=== PATIENT | female | born 1960 | race Caucasian/White ===

== ENCOUNTER 2017-04-04 11:48 | Observation (INO) | payer BC ==
[2017-04-04 11:55] VITALS: BMI 29.5
--- NOTE | 2017-04-04 12:19 | PDOC ---
History of Present Illness - History of Present Illness Initial Comments: 04/04/17 13:59 The patient is a 57 year old female, with a significant past medical history of Lyme disease, who presents to the emergency department from Dr. Ashley office with intermittent left arm pain and numbness that started yesterday with new onset of facial tingling and jaw tightness today. The patient states her left arm tingling and numbness started at her finger and wrist and slowly radiates up her to her shoulder. She reports the tingling and numbness is intermittent and lasts for short periods of time. She states at the onset of her symptoms she called Dr. Monterroso to schedule an appointment for today and could not cook chili her phone in her left hand. She states she was driving [place] the bridge to [place] today when her symptoms returned. She states she pulled off the highway when she developed the new onset of tingling in her tongue and lips, followed by jaw tightness because she was afraid she would pass out. She states she asked the receiving clerk at a gas station to call for an ambulance and drank a bottle of water while she waited. She reports her BP when ems arrived was 150/ 80 and she reports her baseline BP is 110/80. She states she refused to be brought to a hospital via ems and reports driving herself to Dr. Monterroso who, then, referred the patient to [facility]. The patient denies any numbness or tingling at this time. She denies chest pain, shortness of breath, headache and dizziness. She denies fever, chills, nausea, vomit, diarrhea and constipation. She denies dysuria, frequency, urgency and hematuria. Allergies: NKDA Past surgical history: bilateral vascular surgery Social history: denies history of tobacco, alcohol, or illicit drug habits PCP - Dr. Monterroso <Odalys Mariee - Last Filed: 04/04/17 14:22> - General History Source: Patient, Old Records Exam Limitations: No Limitations <Milla Stephens - Last Filed: 04/04/17 15:18> - General Chief Complaint: Weakness Stated Complaint: NUMBNESS TO LT HAND/ MOUTH (PCP SENT) Time Seen by Provider: 04/04/17 12:19 Past History <Odalys Mariee - Last Filed: 04/04/17 14:22> - Past Medical History Other medical history: LYME - Psycho/Social/Smoking Cessation Hx Suicidal Ideation: No Smoking History: Never smoked Information on smoking cessation initiated: No <Milla Stephens - Last Filed: 04/04/17 15:18> - Past Medical History Allergies/Adverse Reactions: Allergies Allergy/AdvReac Type Severity Reaction Status Date / Time No Known Allergies Allergy Verified 04/04/17 11:56 Home Medications: Ambulatory Orders NK [No Known Home Medication] 04/04/17 Review of Systems - Review of Systems Able to Perform ROS?: Yes Comments:: 04/04/17 14:05 GENERAL/CONSTITUTIONAL: No fever or chills. No weakness. HEAD, EYES, EARS, NOSE AND THROAT: (+) tingling to tongue and lips. Jaw tightness. No change in vision. No ear pain or discharge. No sore throat. CARDIOVASCULAR: No chest pain or shortness of breath. RESPIRATORY: No cough, wheezing, or hemoptysis. GASTROINTESTINAL: No nausea, vomiting, diarrhea or constipation. GENITOURINARY: No dysuria, frequency, or change in urination. MUSCULOSKELETAL: (+) Left arm numbness and tingling. No joint or muscle swelling or pain. No neck or back pain. SKIN: No rash NEUROLOGIC: No headache, vertigo, loss of consciousness, or change in strength/ sensation. ENDOCRINE: No increased thirst. No abnormal weight change. HEMATOLOGIC/LYMPHATIC: No anemia, easy bleeding, or history of blood clots. ALLERGIC/IMMUNOLOGIC: No hives or skin allergy. <Odalys Mariee - Last Filed: 04/04/17 14:22> *Physical Exam - Vital Signs Last Vital Signs Temp Pulse Resp BP Pulse Ox 98.1 F 91 H 18 121/91 98 04/04/17 11:51 04/04/17 11:51 04/04/17 11:51 04/04/17 11:51 04/04/17 11:51 - Physical Exam Comments: 04/04/17 14:06 GENERAL: Awake, alert, and fully oriented, in no acute distress HEAD: No signs of trauma EYES: PERRLA, EOMI, sclera anicteric, conjunctiva clear ENT: Auricles normal inspection, hearing grossly normal, nares patent, oropharynx clear without exudates. Moist mucosa NECK: Normal ROM, supple, no lymphadenopathy, JVD, or masses LUNGS: Breath sounds equal, clear to auscultation bilaterally. No wheezes, and no crackles HEART: Regular rate and rhythm, normal S1 and S2, no murmurs, rubs or gallops ABDOMEN: Soft, nontender, normoactive bowel sounds. No guarding, no rebound. No masses EXTREMITIES: Normal range of motion, no edema. No clubbing or cyanosis. No cords, erythema, or tenderness NEUROLOGICAL: Cranial nerves II through XII grossly intact. Normal speech, normal gait SKIN: Warm, Dry, normal turgor, no rashes or lesions noted. <Odalys Mariee - Last Filed: 04/04/17 14:22> - Vital Signs Last Vital Signs Temp Pulse Resp BP Pulse Ox 98.1 F 91 H 18 121/91 98 04/04/17 11:51 04/04/17 11:51 04/04/17 11:51 04/04/17 11:51 04/04/17 11:51 <Milla Stephens - Last Filed: 04/04/17 15:18> ED Treatment Course - LABORATORY CBC & Chemistry Diagram: 04/04/17 13:55 04/04/17 13:55 - RADIOLOGY Radiograph Interpretation: 04/04/17 14:22 CXR was read by Dr. Self at 13:12 Impression: No acute pulmonary disease <Odalys Mariee - Last Filed: 04/04/17 14:22> - LABORATORY CBC & Chemistry Diagram: 04/04/17 13:55 04/04/17 13:55 <Milla Stephens - Last Filed: 04/04/17 15:18> Medical Decision Making - Critical Care Time Total Critical Care Time (minutes): 0 - Medical Decision Making 04/04/17 13:32 57-year-old female with no past medical history presents the emergency Department with complaints of 2 day history of left arm pain and tingling with some facial and tongue numbness and jaw pain today. Her symptoms have subsequently resolved. Differential diagnosis includes but is not limited to: ACS, TIA, intracranial mass, CVA, electrolyte abnormality, peripheral neuropathy , toxic/metabolic derangement. Plan: 1. CT head 2. EKG 3. Labs 4. Chest x-ray 5. Observe and reevaluate 04/04/17 15:17 Addendum: Labs were reviewed and are noted in the EMR. The EKG showed normal sinus rhythm at 65 bpm with a normal axis, intervals and no acute ST segment changes. CT of the head showed no acute infarct or intracranial process. Chest x -ray is negative. I've discussed the case with the patient's primary care physician. The plan is to admit to observation for MRI, neuro checks and serial cardiac markers. <Milla Stephens - Last Filed: 04/04/17 15:18> *DC/Admit/Observation/Transfer - Attestations Scribe Attestion: 04/04/17 14:07 Documentation prepared by Odalys Mariee, acting as medical review specialist for Milla Stephens MD, <Odalys Mariee - Last Filed: 04/04/17 14:22> - Discharge Dispostion Admit: Yes - Attestations Physician Attestion: 04/04/17 13:36 I, Dr. Milla Stephens, attest that the scribes documentation that appears above has been prepared under my direction and personally reviewed by me in its entirety. I confirmed that the note above accurately reflects all work, treatment, procedures, and medical decision-making performed by me. <Milla Stephens - Last Filed: 04/04/17 15:18> Diagnosis at time of Disposition: Left hand paresthesia - Discharge Dispostion Condition at time of disposition: Stable - Referrals Referrals: Prisca Monterroso [Primary Care Provider] -
[2017-04-04 14:07] LABS: BASOPHIL 0.6 % (0-2.0); EOSINOPHIL 0.2 % (0-4.5); MCH 28.2 pg (25.7-33.7); MCHC 33.2 g/dl (32.0-36.0); MEAN CELL VOLUME 84.9 fl (80-96); MEAN PLT VOLUME 8.8 fl (7.5-11.1); NEUTROPHILS 67.6 % (42.8-82.8); PLATELET COUNT 225 K/MM3 (134-434); RDW 13.6 % (11.6-15.6); WHITE BLOOD COUNT 5.2 K/mm3 (4.0-10.0)
[2017-04-04 14:40] LABS: ALBUMIN 3.9 g/dl (3.4-5.0); ALK PHOS 74 U/L (45-117); ANION GAP 8 (8-16); BILIRUBIN,TOTAL 0.3 mg/dL (0.2-1.0); CALCIUM 9.3 mg/dL (8.5-10.1); CO2 29 mmol/L (21-32); COCKROFT - GAULT 132.9825; CREATININE 0.7 mg/dL (0.55-1.02); GLUCOSE,RANDOM 98 mg/dL (74-106); MAGNESIUM 2.3 mg/dL (1.8-2.4); PHOSPHOROUS 3.7 mg/dL (2.5-4.9); SGOT/AST 17 U/L (15-37); SGPT/ALT 25 U/L (12-78); TOT PROT 7.5 g/dl (6.4-8.2)
[2017-04-04 14:42] LABS: TROPONIN I < 0.02 ng/ml (0.00-0.05)
--- NOTE | 2017-04-04 17:02 | EKG ---
Test Reason : Blood Pressure : / mmHG Vent. Rate : 067 BPM Atrial Rate : 067 BPM P-R Int : 164 ms QRS Dur : 084 ms QT Int : 418 ms P-R-T Axes : 057 012 065 degrees QTc Int : 441 ms NORMAL SINUS RHYTHM NORMAL ECG NO PREVIOUS ECGS AVAILABLE Confirmed by CUAUHTEMOC FORTUNE MD ([id number]) on 04/04/2017 5:01:42 PM Referred By: Confirmed By:CUAUHTEMOC FORTUNE MD
[2017-04-04 17:07] LABS: URINE APPEARANCE CLEAR; URINE BILIRUBIN NEGATIVE (NEGATIVE); URINE BLOOD NEGATIVE (NEGATIVE); URINE COLOR COLORLESS; URINE GLUCOSE (UA) NEGATIVE (NEGATIVE); URINE KETONE TRACE (NEGATIVE); URINE LEUK ESTERASE NEGATIVE (NEGATIVE); URINE NITRITE NEGATIVE (NEGATIVE); URINE PROTEIN NEGATIVE (NEGATIVE); URINE UROBILINOGEN NEGATIVE E.U./dl (0.2-1.0)
--- NOTE | 2017-04-04 21:44 | CON.NEURO ---
Consult - History of Present Illness History of Present Illness: The patient is a 57 year old female, with a significant past medical history of Lyme disease (in May last year post tx), who presents to the emergency department from Dr. Ashley office with intermittent left arm pain and numbness that started yesterday with new onset of facial tingling and jaw tightness today. The patient states her left arm tingling and numbness started at her finger and wrist and slowly radiates up her to her shoulder. She reports the tingling and numbness is intermittent and lasts for short periods of time. She states at the onset of her symptoms she called Dr. Monterroso to schedule an appointment for today and could not replenishment associate her phone in her left hand. She states she was driving [place] the bridge to [place] today when her symptoms returned. She states she pulled off the highway when she developed the new onset of tingling in her tongue and lips, followed by jaw tightness because she was afraid she would pass out. She reports her BP when ems arrived was 150/80 and she reports her baseline BP is 110/80. She states she refused to be brought to a hospital via ems and reports driving herself to Dr. Monterroso who, then, referred the patient to [facility]. She states that she was shivering at the time ambulance arrived , had feeling of passing out but never lost her consciousness ; she reports an episode of bumping to a glass door in Dec which caused severe pain and bruise on her forehead and nose ; denies any h/o MVA , no neck pain . 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 - Alcohol/Substance Use Hx Alcohol Use: Yes (SOCIALLY) - Smoking History Smoking history: Never smoked Home Medications - Allergies Allergies/Adverse Reactions: Allergies Allergy/AdvReac Type Severity Reaction Status Date / Time No Known Allergies Allergy Verified 04/04/17 11:56 - Home Medications Home Medications: Ambulatory Orders NK [No Known Home Medication] 04/04/17 Review of Systems - Review of Systems Constitutional: denies: No Symptoms, Chills, Diaphoresis, Fever, Lethargy, Loss of Appetite, Malaise, Night Sweats, Unintentional Wgt. Loss, Weakness, Other Eyes: denies: No Symptoms, Blind Spots, Blurred Vision, Double Vision, Eye Pain , Floaters, Photophobia, Recent Change in Vision, Other HENT: denies: No Symptoms, Difficult Swallowing, Ear Discharge, Ear Pain, Epistaxis, Gingival Bleeding, Hearing Loss, Mouth Swelling, Nasal Congestion, Ocular Prosthesis, Throat Pain, Toothache, Ringing in Ears, Other Cardiovascular: reports: No Symptoms Respiratory: reports: No Symptoms Gastrointestinal: reports: No Symptoms Genitourinary: reports: No Symptoms Physical Exam-Neuro Vital Signs: Vital Signs Temperature 98.3 F 04/04/17 21:15 Pulse Rate 68 04/04/17 21:15 Respiratory Rate 18 04/04/17 21:15 Blood Pressure 113/67 04/04/17 21:15 O2 Sat by Pulse Oximetry (%) 95 04/04/17 21:15 Constitutional: Yes: Well Nourished, No Distress, Calm Neck: Yes: Supple Cardiovascular: Yes: Regular Rate and Rhythm Respiratory: Yes: CTA Bilaterally Gastrointestinal: Yes: Normal Bowel Sounds Musculoskeletal: Yes: WNL Edema: No Psychiatric: Yes: WNL - Neuro Exam Level Of Consciousness: Yes: Alert, Oriented to Person, Oriented to Place, Oriented to Time Eyes: Yes: PERRLA Speech: WNL Cranial Nerves II-XII Intact: Yes DTR's: 2+ Left Bicep, 2+ Right Bicep, 2+ Left Tricep, 2+ Right Tricep, 2+ Left Brachioradialis, 2+ Right Brachioradialis, 2+ Left Achilles, 2+ Right Achilles Babinski: Absent Response to light touch: Normal Response to pain prick: Normal Coordination: Normal: Finger to Nose, Heel to Munson Motor Strength: 5/5: Left Arm, Right Arm, Left Leg, Right Leg Gait: Normal NIH Stroke Scale - Total Score NIH Stroke Scale Score: 0 Imaging - Results Chest X-ray: Report Reviewed Problem List - Problems (1) Numbness and tingling (2) Paresthesias in left hand Code(s): R20.2 - PARESTHESIA OF SKIN Assessment/Plan - L hand numbness tingling , ? TIA ; positive symptoms which argues against central cause , exam unremarkable ; ABCD2 score 1(2-day risk of stroke 1%) - Near syncopy episode in the setting of hypertension , ? hypertensive encephalopathy vs PRES , less likely partial seizure -H/o Lyme disease - stroke w/u including MRI /A brain wo -MRA neck -Lyme titer -ECHO -Tele -Cardiology input -Baby asp -statin - Check RPR, b12, homocysteine , vit D , TSH, AYESHA -EMG as OP -eeg routine Health maintenance per primary team. Thank you for allowing us to participate in the care of this patient. Ronaldo Gonzales M.D. [phone]
--- NOTE | 2017-04-04 22:05 | HP ---
Admitting History and Physical - Primary Care Physician PCP: Prisca Monterroso S - Admission Chief Complaint: LUE numbness, CP, presyncope History of Present Illness: The patient is a 57 year old female, with a significant past medical history of Lyme disease, who presents to the emergency department from Dr. Ashley office with intermittent left arm pain and numbness that started yesterday with new onset of facial tingling and jaw tightness today. The patient states her left arm tingling and numbness started at her finger and wrist and slowly radiates up her to her shoulder. She reports the tingling and numbness is intermittent and lasts for about 1 month. She states she was driving today [place] the bridge to [place] today when her symptoms returned. She also felt "a hunger pain" in her chest then was diaphoretic and had some Gerd and SOB too. Had some neck pain and headaches short lasting. She states she pulled off the highway when she developed the new onset of tingling in her tongue and lips, followed by jaw tightness and she was afraid she would pass out. She states she asked the quotation clerk at a gas station to call for an ambulance and drank a bottle of water while she waited. She reports her BP when ems arrived was 150/80 and she reports her baseline BP is 110/80. She states she refused to be brought to a hospital via ems and reports driving herself to my office and I referred the patient to [facility]. The patient denies any numbness or tingling at this time. 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 [place] History Source: Patient Limitations to Obtaining History: No Limitations - Past Medical History Infectious Disease: Yes: Other (Lyme ds treated with po doxycycline last year) - Smoking History Smoking history: Never smoked - Alcohol/Substance Use Hx Alcohol Use: Yes (SOCIALLY) History of Substance Use: reports: None - Social History Usual Living Arrangement: Yes: Alone ADL: Independent History of Recent Travel: No Home Medications - Allergies Allergies/Adverse Reactions: Allergies Allergy/AdvReac Type Severity Reaction Status Date / Time No Known Allergies Allergy Verified 04/04/17 11:56 - Home Medications Home Medications: Ambulatory Orders NK [No Known Home Medication] 04/04/17 Family Disease History - Family Disease History Family Disease History: Heart Disease: Father (CVA at 60), Mother (CVA at 60) Review of Systems - Review of Systems Constitutional: denies: Chills, Fever Eyes: denies: Blind Spots, Blurred Vision, Double Vision HENT: denies: Difficult Swallowing, Ear Pain Neck: denies: Stiffness, Tenderness Cardiovascular: reports: Chest Pain, Shortness of Breath. denies: Palpitations Respiratory: reports: SOB. denies: Cough Gastrointestinal: reports: Indigestion. denies: Abdominal Pain, Diarrhea Genitourinary: denies: Burning, Dysuria, Flank Pain Musculoskeletal: denies: Back Pain, Extremity Pain Neurological: reports: Numbness. denies: Change in LOC, Change in Speech, Confusion, Dizziness, Headache, Seizure Hematology/Lymphatic: denies: Easily Bruised, Excessive Bleeding Psychiatric: denies: Altered Sleep Pattern, Anxiety, Depression Physical Examination Vital Signs: Vital Signs Temperature 98.3 F 04/04/17 21:15 Pulse Rate 68 04/04/17 21:15 Respiratory Rate 18 04/04/17 21:15 Blood Pressure 113/67 04/04/17 21:15 O2 Sat by Pulse Oximetry (%) 95 04/04/17 21:15 Constitutional: Yes: No Distress, Calm Eyes: Yes: Conjunctiva Clear HENT: Yes: Atraumatic Neck: Yes: Supple Cardiovascular: Yes: Regular Rate and Rhythm Respiratory: Yes: CTA Bilaterally Gastrointestinal: Yes: Soft. No: Distention, Tenderness Renal/: No: CVA Tenderness - Left, CVA Tenderness - Right, Hematuria Musculoskeletal: No: Joint Stiffness, Joint Swelling Extremities: No: Cold, Cool, Cyanosis Edema: No Peripheral Pulses WNL: Yes Integumentary: No: Rash, Venous Stasis Changes Neurological: Yes: WNL, Alert, Oriented ...Motor Strength: WNL Psychiatric: Yes: WNL, Alert, Oriented. No: Agitated, Suicidal Ideation Imaging - Results Chest X-ray: Report Reviewed Other: Report Reviewed Assessment/Plan The patient is a 57 year old female, with a significant past medical history of Lyme disease, who presents to the emergency department from Dr. Ashley office with intermittent left arm pain and numbness that started yesterday with new onset of facial tingling and jaw tightness today. Fam Hx both parents CVA at 60 s/p Lyme ds last year treated admit to telemetry for OBS MAHENDRA, r/o TIA cardio and neuro eval CE carotid US echo brain and CSpine MRI no IVC po ASA check lipids, TSH d/w pt and staff
[2017-04-04] MEDS: ASPIRIN COATED 81 MG TABLET.EC PO SCH (22:39)
[2017-04-05 06:56] LABS: THYROID STIMULATING HORMONE 3.4 uIU/ml (0.358-3.74)
--- NOTE | 2017-04-05 09:43 | PN ---
Progress Note (short form) - Note Progress Note: 57 year old female, with a significant past medical history of Lyme disease (in May last year post tx), who presents to the emergency department from Dr. Ashley office with intermittent left arm pain and numbness that started yesterday with new onset of facial tingling and jaw tightness on 04/04. The patient states her left arm tingling and numbness started at her finger and wrist and slowly radiates up her to her shoulder. She reports the tingling and numbness is intermittent and lasts for short periods of time--later developed the new onset of tingling in her tongue and lips, followed by jaw tightness because she was afraid she would pass out. She reports her BP when ems arrived was 150/80 and she reports her baseline BP is 110/80. She states that she was shivering at the time ambulance arrived, had feeling of passing out but never lost her consciousness she felt body shaking UE/LE, though was fullly aware /lucid. feels back to baseline. She had a mild STARKEY after this event. HX of migraines /STARKEY that may involve R eye/Parietal /temporal area--worse when she menstruates, has been in menopause 2015, though had her period in Dec after one yr of pause. - Alcohol/Substance Use Hx Alcohol Use: Yes (SOCIALLY) - Smoking History Smoking history: Never smoked Home Medications - Allergies Allergies/Adverse Reactions: Allergies Allergy/AdvReac Type Severity Reaction Status Date / Time No Known Allergies Allergy Verified 04/04/17 11:56 - Home Medications Home Medications: Ambulatory Orders NK [No Known Home Medication] 04/04/17 Review of Systems - Review of Systems Constitutional: denies: No Symptoms, Chills, Diaphoresis, Fever, Lethargy, Loss of Appetite, Malaise, Night Sweats, Unintentional Wgt. Loss, Weakness, Other Eyes: denies: No Symptoms, Blind Spots, Blurred Vision, Double Vision, Eye Pain , Floaters, Photophobia, Recent Change in Vision, Other HENT: denies: No Symptoms, Difficult Swallowing, Ear Discharge, Ear Pain, Epistaxis, Gingival Bleeding, Hearing Loss, Mouth Swelling, Nasal Congestion, Ocular Prosthesis, Throat Pain, Toothache, Ringing in Ears, Other Cardiovascular: reports: No Symptoms Respiratory: reports: No Symptoms Gastrointestinal: reports: No Symptoms Genitourinary: reports: No Symptoms Physical Exam-Neuro Vital Signs: Vital Signs Temperature 97.6 F 04/05/17 06:00 Pulse Rate 63 04/05/17 06:00 Respiratory Rate 18 04/05/17 06:00 Blood Pressure 114/65 04/05/17 06:00 O2 Sat by Pulse Oximetry (%) 95 04/05/17 02:40 Constitutional: Yes: Well Nourished, No Distress, Calm Neck: Yes: Supple Cardiovascular: Yes: Regular Rate and Rhythm Respiratory: Yes: CTA Bilaterally Gastrointestinal: Yes: Normal Bowel Sounds Musculoskeletal: Yes: WNL Edema: No Psychiatric: Yes: WNL - Neuro Exam Level Of Consciousness: Yes: Alert, Oriented to Person, Oriented to Place, Oriented to Time Eyes: Yes: PERRLA Speech: WNL Cranial Nerves II-XII Intact: Yes DTR's: 2+ Left Bicep, 2+ Right Bicep, 2+ Left Tricep, 2+ Right Tricep, 2+ Left Brachioradialis, 2+ Right Brachioradialis, 2+ Left Achilles, 2+ Right Achilles Babinski: Absent Response to light touch: Normal Response to pain prick: Normal Coordination: Normal: Finger to Nose, Heel to [place] Motor Strength: 5/5: Left Arm, Right Arm, Left Leg, Right Leg Gait: Normal NIH Stroke Scale - Total Score NIH Stroke Scale Score: 0 Imaging - Results Chest X-ray: Report Reviewed Problem List - Problems (1) Numbness and tingling (2) Paresthesias in left hand Code(s): R20.2 - PARESTHESIA OF SKIN Assessment/Plan - perioral numbness/ L hand numbness tingling, presyncope; r/o vascular cause, ie TIA, seizure (unusual to have BL sx in this case) , metabolic event vs atypical migraine with AURA , vs episodic lyme falre up ( less likely) -MRI /A brain wo -MRA neck -Lyme titer -ECHO -Tele -Cardiology input -Baby asp -statin - b12, homocysteine , vit D , TSH, AYESHA -eeg routine (can be done outpt) Dr Gasca [phone] Problem List - Problems (1) Transient ischemic attack (TIA) Code(s): G45.9 - TRANSIENT CEREBRAL ISCHEMIC ATTACK, UNSPECIFIED
[2017-04-05] MEDS: ASPIRIN COATED 81 MG TABLET.EC PO SCH (09:52)
--- NOTE | 2017-04-05 10:43 | PN ---
Progress Note, Physician Chief Complaint: in bed no c/o feels better awaitng tests as ordered - Current Medication List Current Medications: Active Medications Aspirin (Ecotrin -) 81 mg PO DAILY VICENTE Last Admin: 04/05/17 09:52 Dose: 81 mg - Objective Vital Signs: Vital Signs Temperature 97.6 F 04/05/17 06:00 Pulse Rate 63 04/05/17 06:00 Respiratory Rate 18 04/05/17 06:00 Blood Pressure 114/65 04/05/17 06:00 O2 Sat by Pulse Oximetry (%) 95 04/05/17 02:40 Constitutional: Yes: No Distress, Calm Eyes: Yes: Conjunctiva Clear HENT: Yes: Atraumatic Neck: Yes: Supple Cardiovascular: Yes: Regular Rate and Rhythm Respiratory: Yes: CTA Bilaterally Gastrointestinal: Yes: Soft. No: Distention, Tenderness Genitourinary: No: CVA Tenderness - Left, CVA Tenderness - Right Musculoskeletal: No: Joint Stiffness, Joint Swelling Extremities: No: Cold, Cool, Cyanosis Edema: No Peripheral Pulses WNL: Yes Integumentary: No: Rash, Venous Stasis Changes Neurological: Yes: WNL, Alert, Oriented ...Motor Strength: WNL Psychiatric: Yes: WNL, Alert, Oriented. No: Agitated, Suicidal Ideation - ....Imaging Other: Report Reviewed Assessment/Plan The patient is a 57 year old female, with a significant past medical history of Lyme disease, who presents to the emergency department from Dr. Ashley office with intermittent left arm pain and numbness that started yesterday with new onset of facial tingling and jaw tightness today. Fam Hx both parents CVA at 60 s/p Lyme ds last year treated admitted to telemetry for OBS MAHENDRA, r/o TIA cardio and neuro f/u CE carotid US echo brain and CSpine MRI no IVC po ASA check lipids, TSH d/w pt and staff
--- NOTE | 2017-04-05 12:00 | CON.CARD ---
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 - History Source History Provided By: Patient Limitations to Obtaining History: No Limitations - Past Medical History Infectious Disease: Yes: Other (Lyme ds treated with po doxycycline last year) - Alcohol/Substance Use Hx Alcohol Use: Yes (SOCIALLY) History of Substance Use: reports: None - Smoking History Smoking history: Never smoked - Social History ADL: Independent History of Recent Travel: No Home Medications - Allergies Allergies/Adverse Reactions: Allergies Allergy/AdvReac Type Severity Reaction Status Date / Time No Known Allergies Allergy Verified 04/04/17 11:56 - Home Medications Home Medications: Ambulatory Orders NK [No Known Home Medication] 04/04/17 Family Disease History - Family Disease History Family Disease History: Heart Disease: Father (CVA at 60), Mother (CVA at 60) Review of Systems - Review of Systems Neurological: reports: Parasthesia Vital Signs: Vital Signs Temperature 98.3 F 04/05/17 10:00 Pulse Rate 65 04/05/17 10:00 Respiratory Rate 18 04/05/17 10:00 Blood Pressure 116/72 04/05/17 10:00 O2 Sat by Pulse Oximetry (%) 95 04/05/17 10:00 Constitutional: Yes: No Distress, Calm Neck: Yes: Supple Respiratory: Yes: Regular, CTA Bilaterally Gastrointestinal: Yes: Normal Bowel Sounds, Soft Cardiovascular: Yes: Regular Rate and Rhythm JVD: No Carotid Bruit: No Heart Sounds: Yes: S1, S2 Edema: No Imaging - Results Chest X-ray: Report Reviewed (NAD) Cat Scan: Report Reviewed (HCT: No acute events) EKG: Report Reviewed (NSR normal ECG) Problem List - Problems (1) Numbness and tingling Code(s): R20.0 - ANESTHESIA OF SKIN R20.2 - PARESTHESIA OF SKIN (2) Paresthesias in left hand Code(s): R20.2 - PARESTHESIA OF SKIN (3) Transient ischemic attack (TIA) Code(s): G45.9 - TRANSIENT CEREBRAL ISCHEMIC ATTACK, UNSPECIFIED Qualifiers: Transient cerebral ischemia type: unspecified Qualified Code(s): G45.9 - Transient cerebral ischemic attack, unspecified Assessment/Plan 1. TIA suspect vs. atypical migraine with aura since resolved 2. Near syncope 3. Lyme disease P: 1. Neuro input appreciated, MRI /A brain w/o, MRA neck, ECHO, tele monitor to r/o PAF 2. ASA 81 qd, f/u labs and titers 3. Thank you for consultative opportunity
--- NOTE | 2017-04-06 09:19 | PN ---
Progress Note (short form) - Note Progress Note: 57 year old female, with a significant past medical history of Lyme disease (in May last year post tx), who presents to the emergency department from Dr. Ashley office with intermittent left arm pain and numbness that started yesterday with new onset of facial tingling and jaw tightness on 04/04. The patient states her left arm tingling and numbness started at her finger and wrist and slowly radiates up her to her shoulder. She reports the tingling and numbness is intermittent and lasts for short periods of time--later developed the new onset of tingling in her tongue and lips, followed by jaw tightness because she was afraid she would pass out. She reports her BP when ems arrived was 150/80 and she reports her baseline BP is 110/80. She states that she was shivering at the time ambulance arrived, had feeling of passing out but never lost her consciousness she felt body shaking UE/LE, though was fullly aware /lucid. feels back to baseline. She had a mild STARKEY after this event. HX of migraines /STARKEY that may involve R eye/Parietal /temporal area--worse when she menstruates, has been in menopause 2016, though had her period in Dec after one yr of pause. FU : this AM, mild numbness left hand arm , mostly resolved; no STARKEY MRI's reviewed- no evidence of stroke, dissection , vascultits, demylination etc ; prom left vert, cspine -DJD , no cord issues - Alcohol/Substance Use Hx Alcohol Use: Yes (SOCIALLY) - Smoking History Smoking history: Never smoked Home Medications - Allergies Allergies/Adverse Reactions: Allergies Allergy/AdvReac Type Severity Reaction Status Date / Time No Known Allergies Allergy Verified 04/04/17 11:56 - Home Medications Home Medications: Ambulatory Orders NK [No Known Home Medication] 04/04/17 Review of Systems - Review of Systems Constitutional: denies: No Symptoms, Chills, Diaphoresis, Fever, Lethargy, Loss of Appetite, Malaise, Night Sweats, Unintentional Wgt. Loss, Weakness, Other Eyes: denies: No Symptoms, Blind Spots, Blurred Vision, Double Vision, Eye Pain , Floaters, Photophobia, Recent Change in Vision, Other HENT: denies: No Symptoms, Difficult Swallowing, Ear Discharge, Ear Pain, Epistaxis, Gingival Bleeding, Hearing Loss, Mouth Swelling, Nasal Congestion, Ocular Prosthesis, Throat Pain, Toothache, Ringing in Ears, Other Cardiovascular: reports: No Symptoms Respiratory: reports: No Symptoms Gastrointestinal: reports: No Symptoms Genitourinary: reports: No Symptoms Physical Exam-Neuro Vital Signs: Vital Signs Temperature 97.2 F L 04/06/17 05:20 Pulse Rate 59 L 04/06/17 05:20 Respiratory Rate 18 04/06/17 05:20 Blood Pressure 117/69 04/06/17 05:20 O2 Sat by Pulse Oximetry (%) 97 04/06/17 02:00 Constitutional: Yes: Well Nourished, No Distress, Calm Neck: Yes: Supple Cardiovascular: Yes: Regular Rate and Rhythm Respiratory: Yes: CTA Bilaterally Gastrointestinal: Yes: Normal Bowel Sounds Musculoskeletal: Yes: WNL Edema: No Psychiatric: Yes: WNL - Neuro Exam Level Of Consciousness: Yes: Alert, Oriented to Person, Oriented to Place, Oriented to Time Eyes: Yes: PERRLA Speech: WNL Cranial Nerves II-XII Intact: Yes DTR's: 2+ Left Bicep, 2+ Right Bicep, 2+ Left Tricep, 2+ Right Tricep, 2+ Left Brachioradialis, 2+ Right Brachioradialis, 2+ Left Achilles, 2+ Right Achilles Babinski: Absent Response to light touch: Normal Response to pain prick: Normal Coordination: Normal: Finger to Nose, Heel to [place] Motor Strength: 5/5: Left Arm, Right Arm, Left Leg, Right Leg Gait: Normal NIH Stroke Scale - Total Score NIH Stroke Scale Score: 0 Imaging - Results Chest X-ray: Report Reviewed Problem List - Problems (1) Numbness and tingling (2) Paresthesias in left hand Code(s): R20.2 - PARESTHESIA OF SKIN (3) Transient ischemic attack (TIA) Code(s): G45.9 - TRANSIENT CEREBRAL ISCHEMIC ATTACK, UNSPECIFIED Assessment/Plan - perioral numbness/ L hand numbness tingling, presyncope; r/o vascular cause, ie TIA, seizure (unusual to have BL sx in this case) , metabolic event vs atypical migraine with AURA , vs episodic lyme flare up ( less likely) ; MRI Brain and MRA essentially NL; would give medrol dose pina as may help expedite resolution of sx if prolonged aura FU ECHO, Tele; can cont baby ASA -eeg routine (can be done outpt) +/- EMg can be done as outpt neuro cleared Dr Gasca [phone] Problem List - Problems (1) Transient ischemic attack (TIA) Code(s): G45.9 - TRANSIENT CEREBRAL ISCHEMIC ATTACK, UNSPECIFIED Qualifiers: Transient cerebral ischemia type: unspecified Qualified Code(s): G45.9 - Transient cerebral ischemic attack, unspecified
--- NOTE | 2017-04-06 09:56 | DS ---
Physical Examination Vital Signs: Vital Signs Temperature 97.2 F L 04/06/17 05:20 Pulse Rate 59 L 04/06/17 05:20 Respiratory Rate 18 04/06/17 05:20 Blood Pressure 117/69 04/06/17 05:20 O2 Sat by Pulse Oximetry (%) 97 04/06/17 02:00 Findings/Remarks: ambulating feels well no c/o no headaches no numbness; wants to go home; results of tests d/w pt and gave her copies; C6-7 DH needs f/u neurology and NS dr Tone Reyes outpt EMG and EEG outpt pt does not want medrol pack for migraines Constitutional: Yes: No Distress, Calm Eyes: Yes: Conjunctiva Clear HENT: Yes: Atraumatic Neck: Yes: Supple Cardiovascular: Yes: Regular Rate and Rhythm Respiratory: Yes: CTA Bilaterally Gastrointestinal: Yes: Soft. No: Distention, Tenderness Renal/: No: CVA Tenderness - Left, CVA Tenderness - Right Musculoskeletal: No: Joint Stiffness, Joint Swelling Extremities: No: Cold, Cool, Cyanosis Edema: No Peripheral Pulses WNL: Yes Integumentary: No: Rash, Venous Stasis Changes Neurological: Yes: WNL, Alert, Oriented ...Motor Strength: WNL Psychiatric: Yes: WNL, Alert, Oriented. No: Agitated, Suicidal Ideation Discharge Summary Reason For Visit: LEFT HAND PARESTHESIA Current Active Problems Numbness and tingling (Acute) Paresthesias in left hand (Acute) Transient ischemic attack (TIA) (Acute) Procedures: Principal: admitted with TIA/ migraines/MAHENDRA Other Procedures: CSpine MRI c/d DH but no cord compression; brain MRI c/w gliosis changes;. seen by neurology and cardiology Hospital Course: symptoms resolved; tests noted; needs f/u cardio and neuro and PCP in 1-2 weeks of DC d/w pt Condition: Stable - Instructions Referrals: Prisca Monterroso [Primary Care Provider] - Disposition: HOME - Home Medications Comprehensive Discharge Medication List: Ambulatory Orders NK [No Known Home Medication] 04/04/17
--- NOTE | 2017-04-06 10:32 | PN ---
Progress Note, Physician History of Present Illness: Perioral numbness resolved, parasthesias now localized at left fingertips, tele shows SR without PAF, MRI neg for stroke or cerebral vascular malformations. - Current Medication List Current Medications: Active Medications Aspirin (Ecotrin -) 81 mg PO DAILY VICENTE Last Admin: 04/05/17 09:52 Dose: 81 mg - Objective Vital Signs: Vital Signs Temperature 97.2 F L 04/06/17 05:20 Pulse Rate 59 L 04/06/17 05:20 Respiratory Rate 18 04/06/17 05:20 Blood Pressure 117/69 04/06/17 05:20 O2 Sat by Pulse Oximetry (%) 97 04/06/17 02:00 Constitutional: Yes: No Distress, Calm Neck: Yes: Supple Cardiovascular: Yes: Regular Rate and Rhythm Respiratory: Yes: Regular, CTA Bilaterally Gastrointestinal: Yes: Normal Bowel Sounds, Soft Edema: No - ....Imaging EKG: Report Reviewed (Tele: SR) Problem List - Problems (1) Numbness and tingling Code(s): R20.0 - ANESTHESIA OF SKIN R20.2 - PARESTHESIA OF SKIN (2) Paresthesias in left hand Code(s): R20.2 - PARESTHESIA OF SKIN (3) Atypical migraine Code(s): G43.009 - MIGRAINE W/O AURA, NOT INTRACTABLE, W/O STATUS MIGRAINOSUS Assessment/Plan ECHO 04/05/2017 Normal LV size and fxn, mild MR, AR, mild KIMBERLY 1. Likely atypical migraine with aura resolving 2. Near syncope 3. Lyme disease P: 1. Neuro input appreciated, short course of steroids 2. ASA 81 qd, plan for d/c with neuro f/u for EEG +/-EMG as outpatient
[2017-04-06] MEDS: ASPIRIN COATED 81 MG TABLET.EC PO SCH (10:39)
[2017-04-06 10:56] VITALS: BP 120/65; PULSE 62; TEMP 98.6
== END 2017-04-06 11:25 | disposition home or self-care (01) ==
LOC: JER 11:48 → JERBED 15:18 → J4W 21:32
PROVIDERS: ADMIT Internal Medicine; ATTEND Internal Medicine
DX: R20.2 Paresthesia of skin (principal); R20.0 Anesthesia of skin; Z86.19 Personal history of other infectious and parasitic diseases; G45.9 Transient cerebral ischemic attack, unspecified; Z79.82 Long term (current) use of aspirin; G43.009 Migraine without aura, not intractable, without status migrainosus
CPT/HCPCS: 36415; 70450-TC; 70544-TC; 70547-TC; 70551-TC; 71010-TC; 72141-TC; 80053; 80061; 81003; 82550; 82607; 83090; 83721; 83735; 84100; 84443; 84484; 85025; 85651; 86038; 86593; 86618; 93005; 93010; 93306-TC; 93880-TC; 95816; 99283-25; G0378

== ENCOUNTER 2017-06-21 14:21 | Emergency (ER) | payer BC ==
--- NOTE | 2017-06-21 14:43 | PDOC ---
History of Present Illness - General Stated Complaint: SOB Time Seen by Provider: 06/21/17 14:41 - History of Present Illness Initial Comments: 06/21/17 14:43 Ms. Sánchez is a 57 year old female with a significant past medical history recent migraine diagnosis who presents to the emergency department with a several day history of episodes of "head pichardo" where she experienced palpitations, the feeling that she might pass out, increased urination and bowel movements, high blood pressure (taken on her home monitor), parasthesias, and facial warmth. She presented previously in march for these same symptoms. The patient denies chest pain, shortness of breath, headache and dizziness. Denies fever, chills, nausea, vomit, diarrhea and constipation. Denies dysuria, frequency, urgency and hematuria. Allergies: NKDA Past surgical history: varicose vein ablation Social history:social alcohol use PMD - Androni Past History - Past Medical History Allergies/Adverse Reactions: Allergies Allergy/AdvReac Type Severity Reaction Status Date / Time No Known Allergies Allergy Verified 06/21/17 14:52 Home Medications: Ambulatory Orders NK [No Known Home Medication] 06/21/17 - Psycho/Social/Smoking Cessation Hx Suicidal Ideation: No Smoking History: Never smoked Hx Alcohol Use: Yes (SOCIALLY) Review of Systems - Review of Systems Comments:: 06/21/17 14:43 GENERAL/CONSTITUTIONAL: No fever or chills. No weakness. HEAD, EYES, EARS, NOSE AND THROAT: No change in vision. No ear pain or discharge. No sore throat. CARDIOVASCULAR: No chest pain or shortness of breath RESPIRATORY: No cough, wheezing, or hemoptysis. GASTROINTESTINAL: No nausea, vomiting, diarrhea or constipation. GENITOURINARY: No dysuria, frequency, or change in urination. MUSCULOSKELETAL: No joint or muscle swelling or pain. No neck or back pain. SKIN: No rash NEUROLOGIC: No headache, vertigo, loss of consciousness, or change in strength/ sensation. ENDOCRINE: No increased thirst. No abnormal weight change HEMATOLOGIC/LYMPHATIC: No anemia, easy bleeding, or history of blood clots. ALLERGIC/IMMUNOLOGIC: No hives or skin allergy. *Physical Exam - Physical Exam Comments: 06/21/17 14:43 GENERAL: Awake, alert, and fully oriented, in no acute distress HEAD: No signs of trauma, normocephalic, atraumatic EYES: PERRLA, EOMI, sclera anicteric, conjunctiva clear ENT: Auricles normal inspection, hearing grossly normal, nares patent, oropharynx clear without exudates. Moist mucosa NECK: Normal ROM, supple, no lymphadenopathy, JVD, or masses LUNGS: No distress, speaks full sentences, clear to auscultation bilaterally HEART: Regular rate and rhythm, normal S1 and S2, no murmurs, rubs or gallops, peripheral pulses normal and equal bilaterally. ABDOMEN: Soft, nontender, normoactive bowel sounds. No guarding, no rebound. No masses EXTREMITIES: Normal inspection, Normal range of motion, no edema. No clubbing or cyanosis. NEUROLOGICAL: Cranial nerves II through XII grossly intact. Normal speech, normal gait, no focal sensorimotor deficits SKIN: Warm, Dry, normal turgor, no rashes or lesions noted. Heart Score/ECG Review - ECG Impressions Comment:: 06/21/17 16:55 Normal rate and rhythm, normal interval, normal access. No concerning features or ST elevation. Normal EKG. ED Treatment Course - LABORATORY CBC & Chemistry Diagram: 06/21/17 16:28 06/21/17 16:28 Medical Decision Making - Medical Decision Making 06/21/17 16:56 Ms. Sánchez came in for evaluation of recurring episodes as noted in HPI. She has previously had completed a large workup to evaluate these symptoms with a diagnosis of migraine with atypical features. We will check basic labs as well as TSH to rule out thyroid cause. 06/21/17 19:19 Labs all returned normal. Conferred with PCP (Benito) regarding next steps - Decided to send home as no acutely concerning features with follow-up when office opens tomorrow at 11:30. PCP will investigate further. *DC/Admit/Observation/Transfer Diagnosis at time of Disposition: Visual disturbance, Palpitations - Discharge Dispostion Disposition: HOME - Referrals Referrals: Prisca Monterroso [Primary Care Provider] - - Patient Instructions Printed Discharge Instructions: DI for Palpitations Additional Instructions: Please follow-up as discussed with your primary care provider. Return to ER if any worsening of symptoms or other concerning features. - Attestations Physician Attestion: 06/21/17 20:03 I, Dr. Oskar Tse, attest that this document has been prepared under my direction and personally reviewed by me in its entirety. I further attest, that it accurately reflects all work, treatment, procedures and medical decision -making performed by me.
[2017-06-21 15:09] VITALS: BMI 27.8
[2017-06-21] MEDS ORDERED: SODIUM CHLORIDE 1,000 ML IV STA (15:22)
--- NOTE | 2017-06-21 16:18 | PDOC ---
Attending Attestation - Resident Resident Name: Oskar Tse - ED Attending Attestation I have performed the following: I have examined & evaluated the patient, The case was reviewed & discussed with the resident, I agree w/resident's findings & plan, Exceptions are as noted - HPI HPI: 06/21/17 17:12 see remainder of note - Medical Decision Making 06/21/17 16:31 The patient is a 57 year old female, with no significant past medical history who presents to the emergency department with intermittent episodes of blurry vision and SOB since March. The patient reports her episodes often start with blurry vision in her right eye followed by a sensation of blood rushing up and down her R leg. After that, she experiences palpiatations, SOB for a few seconds , and at times feels as though she will pass out. At times, she checks her BP during the episodes and finds her SBP to be elevated to btwn 160-200. She has been treating her elevated BP half a pill of her 's valsartan/HCTZ. The patient reports being seen in the ER back in Mar, 2017 for similar sxs, with a full work up and no clear etiology. Back in March, these episodes occured much less frequently, but now she reports multiple episodes of these sxs per day lasting btwn 5-20 mins. The patient reports her symptoms are often alleviated with water, standing in front of the AC, and resting. The episodes are not triggered by anything, however, she feels they have begun to interfere with her work. Since she feels as though she will pass out, she is worried about driving in case she has one of the episodes. She reports that she was told the episodes may be panic attacks in the past but she does not feel as though this is the case. She denies recent fevers, chills, or dizziness. She denies motor weakness or headaches. She denies recent nausea, vomit, diarrhea or constipation. She denies recent dysuria, frequency, urgency or hematuria. She denies recent chest pain. She reports recently [place] the [place] yesterday. Her vitals are unremarkable and her exam is remarkable only for mild decreased sensation to light touch below the L knee. EKG is non ischemic, NSR with mild TWI in I and Avl, no ARABELLA. It is unclear what this constellation of symptoms can be attributed to, and as such, the differential is wide and includes partial seizures vs atypical migraines vs pheochromocytoma vs hyperthyroidism vs panic disorder. Plan: -cbc, bmp, lfts, tsh, trop to screen for any cardiac, infectious, tox-metabolic etiology -CXR for SOB -cardiac nurse specialist to see if we can catch any episodes on tele -metanephrines -contact PCP -admit for obs 06/21/17 17:11 <Jaime Israel - Last Filed: 06/21/17 17:13> Discharge Disposition <Robert Wilkinson - Last Filed: 06/21/17 16:52> - Discharge Dispostion Admit: Yes <Jaime Israel - Last Filed: 06/21/17 17:13> - Diagnosis Shortness of breath - Referrals Referrals: Prisca Monterroso [Primary Care Provider] - *Physical Exam - Vital Signs Last Vital Signs Temp Pulse Resp BP Pulse Ox 98.5 F 78 18 121/78 99 06/21/17 14:35 06/21/17 14:35 06/21/17 14:35 06/21/17 14:35 06/21/17 14:35 - Physical Exam Comments: 06/21/17 16:20 GENERAL: Awake, alert, and fully oriented, in no acute distress HEAD: No signs of trauma EYES: PERRLA, EOMI, sclera anicteric, conjunctiva clear ENT: Auricles normal inspection, hearing grossly normal, nares patent, oropharynx clear without exudates. Moist mucosa NECK: Normal ROM, supple, no lymphadenopathy, JVD, or masses LUNGS: Breath sounds equal, clear to auscultation bilaterally. No wheezes, and no crackles HEART: Regular rate and rhythm, normal S1 and S2, no murmurs, rubs or gallops ABDOMEN: Soft, nontender, normoactive bowel sounds. No guarding, no rebound. No masses EXTREMITIES: Normal range of motion, no edema. No clubbing or cyanosis. No cords, erythema, or tenderness NEUROLOGICAL: Left lower extremity below the knee decreased sensation to touch. 5/5 strength in both UEs and LEs. Cranial nerves II through XII grossly intact. Normal speech, normal gait SKIN: Warm, Dry, normal turgor, no rashes or lesions noted. <Robert Wilkinson - Last Filed: 06/21/17 16:52> Review of Systems - Review of Systems Able to Perform ROS?: Yes Comments:: 06/21/17 16:20 GENERAL/CONSTITUTIONAL: No fever or chills. No weakness. HEAD, EYES, EARS, NOSE AND THROAT: +blurry vision. No ear pain or discharge. No sore throat. CARDIOVASCULAR: +SOB. No chest pain RESPIRATORY: No cough, wheezing, or hemoptysis. GASTROINTESTINAL: No nausea, vomiting, diarrhea or constipation. GENITOURINARY: No dysuria, frequency, or change in urination. MUSCULOSKELETAL: No joint or muscle swelling or pain. No neck or back pain. SKIN: No rash NEUROLOGIC: +UE numbness. No headache, vertigo, loss of consciousness, or change in strength/sensation. ENDOCRINE: No increased thirst. No abnormal weight change. HEMATOLOGIC/LYMPHATIC: No anemia, easy bleeding, or history of blood clots. ALLERGIC/IMMUNOLOGIC: No hives or skin allergy. <Robert Wilkinson - Last Filed: 06/21/17 16:52> History of Present Illness - General History Source: Patient Exam Limitations: No Limitations - History of Present Illness Initial Comments: 06/21/17 16:31 The patient is a 57 year old female, with no significant past medical history who presents to the emergency department with intermittent episodes of blurry vision and SOB since March. The patient reports her episodes often start with blurry vision in her right eye followed by a sensation of blood rushing up and down her R leg. After that, she experiences palpiatations, SOB for a few seconds , and at times feels as though she will pass out. At times, she checks her BP during the episodes and finds her SBP to be elevated to btwn 160-200. She has been treating her elevated BP half a pill of her 's valsartan/HCTZ. The patient reports being seen in the ER back in Mar, 2017 for similar sxs, with a full work up and no clear etiology. Back in March, these episodes occured much less frequently, but now she reports multiple episodes of these sxs per day lasting btwn 5-20 mins. The patient reports her symptoms are often alleviated with water, standing in front of the AC, and resting. The episodes are not triggered by anything, however, she feels they have begun to interfere with her work. Since she feels as though she will pass out, she is worried about driving in case she has one of the episodes. She reports that she was told the episodes may be panic attacks in the past but she does not feel as though this is the case. She denies recent fevers, chills, or dizziness. She denies motor weakness or headaches. She denies recent nausea, vomit, diarrhea or constipation. She denies recent dysuria, frequency, urgency or hematuria. She denies recent chest pain. She [place]. Her vitals are unremarkable and her exam is remarkable only for mild decreased sensation to light touch below the L knee. EKG is non ischemic, NSR with mild TWI in I and Avl, no ARABELLA. Documentation prepared by Robert Wilkinson, acting as medical aide for Jaime Israel MD. <Robert Wilkinson - Last Filed: 06/21/17 16:52> <Jaime Israel - Last Filed: 06/21/17 17:13> - General Chief Complaint: Headache Stated Complaint: SOB Time Seen by Provider: 06/21/17 14:41
[2017-06-21 16:37] LABS: BASOPHIL 0.6 % (0-2.0); EOSINOPHIL 0.4 % (0-4.5); MCH 28.3 pg (25.7-33.7); MCHC 33.4 g/dl (32.0-36.0); MEAN CELL VOLUME 84.8 fl (80-96); MEAN PLT VOLUME 8.7 fl (7.5-11.1); NEUTROPHILS 61.1 % (42.8-82.8); PLATELET COUNT 285 K/MM3 (134-434); RDW 13.4 % (11.6-15.6); WHITE BLOOD COUNT 7.3 K/mm3 (4.0-10.0)
[2017-06-21 17:08] LABS: ANION GAP 7 (8-16); CALCIUM 9.9 mg/dL (8.5-10.1); CO2 29 mmol/L (21-32); CREATININE 0.8 mg/dL (0.55-1.02); GLUCOSE,RANDOM 97 mg/dL (74-106)
[2017-06-21 17:15] LABS: THYROID STIMULATING HORMONE 1.56 uIU/ml (0.358-3.74)
[2017-06-21 19:06] LABS: URINE APPEARANCE CLEAR; URINE BILIRUBIN NEGATIVE (NEGATIVE); URINE BLOOD NEGATIVE (NEGATIVE); URINE COLOR STRAW; URINE GLUCOSE (UA) NEGATIVE (NEGATIVE); URINE KETONE NEGATIVE (NEGATIVE); URINE NITRITE NEGATIVE (NEGATIVE); URINE PROTEIN NEGATIVE (NEGATIVE); URINE UROBILINOGEN NEGATIVE mg/dL (0.2-1.0)
[2017-06-21 19:11] LABS: URINE LEUK ESTERASE 1+ (NEGATIVE)
[2017-06-21 19:19] LABS: URINE RBC <1 /hpf (0-3); URINE WBC 3 /hpf (3-5)
[2017-06-21 20:43] VITALS: BP 113/66; PULSE 68; TEMP 98.4
--- NOTE | 2017-06-22 10:55 | EKG ---
Test Reason : Blood Pressure : / mmHG Vent. Rate : 071 BPM Atrial Rate : 071 BPM P-R Int : 156 ms QRS Dur : 078 ms QT Int : 396 ms P-R-T Axes : 059 010 082 degrees QTc Int : 430 ms NORMAL SINUS RHYTHM POSSIBLE LEFT ATRIAL ENLARGEMENT BORDERLINE ECG WHEN COMPARED WITH ECG OF 04-APR-2017 14:29, NO SIGNIFICANT CHANGE WAS FOUND Confirmed by KRISSY CORTÉS MD ([id number]) on 06/22/2017 10:54:45 AM Referred By: Confirmed By:KRISSY CORTÉS MD
== END 2017-06-21 21:23 | disposition home or self-care (01) ==
LOC: JER 14:21
PROC: 3E0337Z Introduction of Electrolytic and Water Balance Substance into Peripheral Vein, Percutaneous Approach (ICD-10-PCS; principal; 2017-06-21)
DX: R00.2 Palpitations (principal); H53.9 Unspecified visual disturbance
CPT/HCPCS: 36415; 71020-TC; 80048; 81003; 81015; 84443; 84484; 85025; 93005; 93010; 99285-25